=== PATIENT | female | born 1965 | race Caucasian/White ===

== ENCOUNTER 2024-11-17 08:38 | Day surgery (SDC) | payer MEDICAID ==
[~2024-11-17] VITALS: Ht 177.8 cm; Wt 77.2 kg
[~2024-11-17 08:38] MED LIST: ACET325T55 PO; CALC300T4 PO; DIPH25CA52 PO; DIPH28.34 TOP; DOCU283E RC; HYDR-3964 PO; IBUP-1985 PO; LEVO750T68 PO; METO5TAB85 PO; METR-159 PO; NYST30CR34 TOP; NYST50002 PO; PANT-47 PO; POLY17PO59 PO; PRAM113C TOP; TETR20SP MT; VANC1.257 IV
[2024-11-17 09:40] VITALS: BP 141/85; PULSE 100; RESP 21
[2024-11-17] MEDS ORDERED: fentaNYL/PF 50MCG/1 ML 2ML syringe ONE (10:06)
[2024-11-17] MEDS ORDERED: diphenhydrAMINE 50 mg/ml inj ONE (10:06)
[2024-11-17] MEDS ORDERED: MIDAZolam 1 MG/ML 5ML VIAL ONE (10:06)
[2024-11-17] MEDS ORDERED: LIDOcaine 2% Viscous 15ml cup ONE (10:07)
[2024-11-17 10:30] VITALS: BP 112/68; PULSE 85; RESP 13
[2024-11-17 10:40] VITALS: BP 138/80; PULSE 87; RESP 13
[2024-11-17 10:50] VITALS: BP 126/80; PULSE 96; RESP 14
[2024-11-17 11:00] VITALS: BP 123/81; PULSE 90; RESP 17
== END 2024-11-17 13:00 | disposition home or self-care (01) ==
LOC: GI LAB 08:38
PROVIDERS: ATTEND Internal Medicine Gastroenterology
DX: D50.0 Iron deficiency anemia secondary to blood loss (chronic) (principal); R13.10 Dysphagia, unspecified; B37.81 Candidal esophagitis; K31.89 Other diseases of stomach and duodenum
CPT/HCPCS: 43239; 99152; J2250; J3010; J7030; Z7512; A4620; J1200

== ENCOUNTER 2024-11-29 22:49 | Inpatient (IN) | payer MEDICAID ==
[~2024-11-29] VITALS: Ht 177.8 cm; Wt 72.7 kg
[2024-11-29 23:23] LABS: BASOPHILS % (AUTO) 0.2 % (0-1); EOSINOPHILS # (AUTO) 0.1 X10'3 (0-0.9); HEMOGLOBIN 7.9 g/dl (12.0-16.0); LYMPHOCYTES # (AUTO) 0.6 X10'3 (1.1-4.8); MONOCYTES # (AUTO) 0.8 X10'3 (0-0.9)
[2024-11-29 23:25] LABS: EOSINOPHILS % (AUTO) 0.9 % (0-6); HEMATOCRIT 24.4 % (35.0-45.0); LYMPHOCYTES % (AUTO) 7.6 % (21-51); MEAN CORPUSCULAR HEMOGLOBIN 23.4 PG (27.0-31.0); MEAN CORPUSCULAR HGB CONC 32.3 g/dL (33.0-36.5); MEAN CORPUSCULAR VOLUME 72.5 FL (78-98); MEAN PLATELET VOLUME 7.8 FL (7.4-10.4); MONOCYTES % (AUTO) 10.2 % (2-12); NEUTROPHILS # (AUTO) 6.5 X10'3 (1.8-7.7); NEUTROPHILS % (AUTO) 81.1 % (42-75); PLATELET COUNT 417 X10'3 (140-440); RED BLOOD COUNT 3.36 X10'6 (4.20-5.60); RED CELL DISTRIBUTION WIDTH 17.6 % (11.5-14.5)
[2024-11-29 23:40] LABS: ALANINE AMINOTRANSFERASE 30 U/L (12-78); ALBUMIN 3.2 G/DL (3.4-5.0); ALBUMIN/GLOBULIN RATIO 0.8 (1.1-1.5); ALKALINE PHOSPHATASE 100 IU/L (46-116); ANION GAP 10 (8-16); ASPARTATE AMINO TRANSFERASE 55 U/L (10-37); BILIRUBIN,TOTAL 0.3 MG/DL (0.1-1.0); BLOOD UREA NITROGEN 47 MG/DL (7-18); BUN/CREATININE RATIO 35.3 (10.0-20.0); CALCIUM 8.8 MG/DL (8.5-10.1); CHLORIDE 107 MMOL/L (99-107); CREATININE 1.33 MG/DL (0.40-0.90); GLUCOSE 102 MG/DL (70-104); POTASSIUM 4.3 MMOL/L (3.5-5.1); SODIUM 137 MMOL/L (135-145); TOTAL CARBON DIOXIDE 20.2 MMOL/L (24-32); eCRCL 48 ML/MIN; eGFR 41 ML/MIN
[2024-11-29 23:47] LABS: PRO BRAIN NATRIURETIC PEPTIDE 2692 PG/ML (0-125)
[2024-11-30] VITALS (9 sets, daily range): BP systolic 112–161; BP diastolic 66–86; PULSE 81–95; RESP 12–18; TEMP 97.3–98; O2SAT 99–100
[2024-11-30] MEDS: ketorolac trometh 15mg/ml vial 15 MG/ML ML IV ONE (03:09)
[2024-11-30] MEDS ORDERED: iohexol 300mg/ml 100ml inj. ONE (03:42)
[2024-11-30] MEDS: pantoprazole 40 MG vial IV ONE (04:43)
[2024-11-30 04:46] LABS: OCCULT BLOOD STOOL NEGATIVE (Neg)
[2024-11-30] MEDS: normal saline 1000ml 1,000 ML IV ONE (05:34)
[2024-11-30] MEDS ORDERED: acetaminophen 325mg tablet PO PRN (06:40)
[2024-11-30] MEDS ORDERED: ondansetron/PF 4mg/2ml inj IV PRN (06:40)
[2024-11-30] MEDS ORDERED: potassium Cl 20 mEq SR tablet PO PRN ×2 (06:40)
[2024-11-30] MEDS ORDERED: magnesium sulf-water 2g/50mL 50 ML IV PRN (06:40)
[2024-11-30] MEDS ORDERED: magnesium hydroxide 30ml (MOM) UD suspension PO PRN (06:40)
[2024-11-30] MEDS ORDERED: docusate sod 100mg capsule PO PRN (06:40)
[2024-11-30] MEDS ORDERED: potassium Cl 40MEQ/1/2NS 520ml 520 ML IV PRN (06:40)
[2024-11-30] MEDS: PERFLUTREN PROTEIN-A MICROSPHR (Optison) 0.22 MG/ML 3ML VIAL IV ONE (06:40)
[2024-11-30] MEDS ORDERED: magnesium sulf-water 4G/100mL 100 ML IV PRN (06:40)
[2024-11-30] MEDS ORDERED: magnesium Cl slow-release 64mg tablet PO PRN (06:40)
[2024-11-30] MEDS ORDERED: mag hydrox/Alum hydrox/simeth 30ml oral suspension PO PRN (06:40)
[2024-11-30] MEDS ORDERED: morphine 2 MG/ML inj. syringe IV PRN (06:40)
[2024-11-30] MEDS: normal saline 1000ml 1,000 ML IV SCH (07:15)
[2024-11-30 07:33] LABS: BILIRUBIN,URINE NEGATIVE (Neg); CLARITY,URINE CLEAR (Clear); COLOR,URINE YELLOW (Yellow); GLUCOSE, URINE NEGATIVE (Neg); KETONES,URINE NEGATIVE (Neg); LEUKOCYTE ESTERASE ,URINE NEGATIVE (Neg); NITRITES, URINE NEGATIVE (Neg); OCCULT BLOOD,URINE NEGATIVE (Neg); PROTEIN,URINE NEGATIVE (Neg); UROBILINOGEN,URINE 0.2 E.U/dL (0.2-1.0)
[2024-11-30] MEDS: K and/or MAG REPLACEMENT MC SCH (07:42)
[2024-11-30 07:45] LABS: APTT 24 SECONDS (22-32); INR 1.1 INR; PROTHROMBIN TIME 11.2 SECONDS (9.0-12.0)
[2024-11-30 07:48] LABS: BASOPHILS % (AUTO) 0.2 % (0-1); EOSINOPHILS # (AUTO) 0.1 X10'3 (0-0.9); EOSINOPHILS % (AUTO) 3.7 % (0-6); LYMPHOCYTES # (AUTO) 0.4 X10'3 (1.1-4.8); LYMPHOCYTES % (AUTO) 11.4 % (21-51); MEAN CORPUSCULAR HEMOGLOBIN 23.7 PG (27.0-31.0); MEAN CORPUSCULAR HGB CONC 32.6 g/dL (33.0-36.5); MEAN CORPUSCULAR VOLUME 72.5 FL (78-98); MEAN PLATELET VOLUME 7.4 FL (7.4-10.4); MONOCYTES # (AUTO) 0.5 X10'3 (0-0.9); MONOCYTES % (AUTO) 13.1 % (2-12); NEUTROPHILS # (AUTO) 2.8 X10'3 (1.8-7.7); NEUTROPHILS % (AUTO) 71.6 % (42-75); PLATELET COUNT 389 X10'3 (140-440); RED BLOOD COUNT 2.96 X10'6 (4.20-5.60); RED CELL DISTRIBUTION WIDTH 17.4 % (11.5-14.5); WHITE BLOOD COUNT 3.9 X10'3 (4.5-11.0)
[2024-11-30 07:49] LABS: CREATINE KINASE MB 4.1 ng/ml (0.3-3.6); MAGNESIUM 2.2 MG/DL (1.5-2.4); POTASSIUM 4.3 MMOL/L (3.5-5.1); THYROID STIMULATING HORMONE 1.24 ulU/ml (0.34-4.50)
[2024-11-30 07:58] LABS: HEMATOCRIT 21.4 % (35.0-45.0)
[2024-11-30] MEDS: heparin, porcine 5000 units/ml vial SQ SCH (08:04)
[2024-11-30] MEDS: CefTRIAXone/D5W-Rocephin 1gm 50 ML IV SCH (08:04)
[2024-11-30] MEDS: pantoprazole 40 MG vial IV SCH (08:05)
[2024-11-30] MEDS: levoFLOXACIN-Levaquin 750MG/D5 150 ML IV SCH (08:05)
[2024-11-30 08:06] LABS: URINE AMPHETAMINE SCREEN NEGATIVE (Neg); URINE BARBITUATE SCREEN NEGATIVE (Neg); URINE BENZODIAZEPINES SCREEN NEGATIVE (Neg); URINE CANNABINOID SCREEN NEGATIVE (Neg); URINE COCAINE SCREEN NEGATIVE (Neg); URINE METHADONE SCREEN NEGATIVE (Neg); URINE OPIATE SCREEN POSITIVE (Neg); URINE PHENCYCLIDINE SCREEN NEGATIVE (Neg)
[2024-11-30 08:09] LABS: UA COLLECTION TYPE CLN CATCH MIDSTREAM
[2024-11-30 08:31] LABS: HEMOGLOBIN A1C 5.9 % (4.5-6.2)
[2024-11-30] MEDS ORDERED: FERR324T PO (14:30)
[2024-11-30] MEDS: pantoprazole 40MG/NS 100ML BAG 100 ML IV SCH (17:42)
[2024-11-30 19:37] LABS: BASOPHILS % (AUTO) 0 % (0-1); EOSINOPHILS # (AUTO) 0.2 X10'3 (0-0.9); EOSINOPHILS % (AUTO) 3.6 % (0-6); HEMATOCRIT 28.6 % (35.0-45.0); HEMOGLOBIN 8.9 g/dl (12.0-16.0); LYMPHOCYTES # (AUTO) 0.5 X10'3 (1.1-4.8); LYMPHOCYTES % (AUTO) 8.6 % (21-51); MEAN CORPUSCULAR HEMOGLOBIN 24.6 PG (27.0-31.0); MEAN CORPUSCULAR VOLUME 79.2 FL (78-98); MEAN PLATELET VOLUME 7.2 FL (7.4-10.4); MONOCYTES # (AUTO) 0.6 X10'3 (0-0.9); MONOCYTES % (AUTO) 10.9 % (2-12); NEUTROPHILS # (AUTO) 4.3 X10'3 (1.8-7.7); NEUTROPHILS % (AUTO) 76.9 % (42-75); PLATELET COUNT 325 X10'3 (140-440); RED BLOOD COUNT 3.61 X10'6 (4.20-5.60); RED CELL DISTRIBUTION WIDTH 19.1 % (11.5-14.5); WHITE BLOOD COUNT 5.6 X10'3 (4.5-11.0)
[2024-11-30] MEDS: amLODIPine 5mg tablet PO SCH (21:29)
[2024-11-30] MEDS: lactobacillus rhamnosus 10,000 MMU CELLS/CAPSULE PO SCH (21:30)
[2024-11-30] MEDS: loratadine 10mg tablet PO SCH (23:26)
[2024-11-30] MEDS: morphine 2 MG/ML inj. syringe IV PRN (23:26)
[2024-11-30] MEDS: NYSTATIN CREAM - 30GM TUBE TP SCH (23:27)
[2024-12-01 06:00] VITALS: BP 136/72; PULSE 100; RESP 16; TEMP 99.5; O2SAT 98
[2024-12-01 06:05] LABS: BASOPHILS % (AUTO) 0.1 % (0-1); EOSINOPHILS # (AUTO) 0.2 X10'3 (0-0.9); EOSINOPHILS % (AUTO) 2.5 % (0-6); HEMATOCRIT 26.4 % (35.0-45.0); HEMOGLOBIN 8.7 g/dl (12.0-16.0); LYMPHOCYTES # (AUTO) 0.4 X10'3 (1.1-4.8); LYMPHOCYTES % (AUTO) 4.8 % (21-51); MEAN CORPUSCULAR HEMOGLOBIN 24.3 PG (27.0-31.0); MEAN CORPUSCULAR HGB CONC 32.9 g/dL (33.0-36.5); MEAN CORPUSCULAR VOLUME 73.9 FL (78-98); MEAN PLATELET VOLUME 7.4 FL (7.4-10.4); MONOCYTES # (AUTO) 0.7 X10'3 (0-0.9); MONOCYTES % (AUTO) 8.5 % (2-12); NEUTROPHILS % (AUTO) 84.1 % (42-75); PLATELET COUNT 336 X10'3 (140-440); RED BLOOD COUNT 3.58 X10'6 (4.20-5.60); RED CELL DISTRIBUTION WIDTH 18.5 % (11.5-14.5); WHITE BLOOD COUNT 8.4 X10'3 (4.5-11.0)
[2024-12-01 06:28] LABS: % IRON SATURATION 7 % (11-46); IRON 16 UG/DL (49-151); TOTAL IRON BINDING CAPACITY 239 UG/DL (259-388)
[2024-12-01 06:29] LABS: ALANINE AMINOTRANSFERASE 33 U/L (12-78); ALBUMIN 2.6 G/DL (3.4-5.0); ALBUMIN/GLOBULIN RATIO 0.7 (1.1-1.5); ALKALINE PHOSPHATASE 95 IU/L (46-116); ANION GAP 10 (8-16); ASPARTATE AMINO TRANSFERASE 46 U/L (10-37); BILIRUBIN,TOTAL 0.3 MG/DL (0.1-1.0); BLOOD UREA NITROGEN 25 MG/DL (7-18); BUN/CREATININE RATIO 21.7 (10.0-20.0); CALCIUM 8.1 MG/DL (8.5-10.1); CHLORIDE 106 MMOL/L (99-107); CHOL/HDL RATIO 2.4 (0.00-4.99); CHOLESTEROL 115 MG/DL (0-200); CREATININE 1.15 MG/DL (0.40-0.90); GLUCOSE 101 MG/DL (70-104); HDL CHOLESTEROL 47 MG/DL (35-60); POTASSIUM 4.6 MMOL/L (3.5-5.1); SODIUM 135 MMOL/L (135-145); TOTAL CARBON DIOXIDE 19.5 MMOL/L (24-32); TOTAL PROTEIN 6.3 G/DL (6.4-8.2); TRIGLYCERIDES 96 MG/DL (20-135); eCRCL 56 ML/MIN; eGFR 48 ML/MIN
[2024-12-01 07:13] LABS: LDL CHOLESTEROL 53 MG/DL (50-100)
[2024-12-01 08:30] VITALS: RESP 20; O2SAT 96
[2024-12-01 10:00] VITALS: BP 140/61; PULSE 98; RESP 18; TEMP 97.6; O2SAT 100
[2024-12-01] MEDS: HYDROcodone/acetaminophen 5mg/325mg tablet PO PRN (11:45)
[2024-12-01] MEDS: LORazepam 2 mg/ml vial IV PRN (11:45)
[2024-12-01 18:00] VITALS: BP 127/69; PULSE 97; RESP 16; TEMP 98.7; O2SAT 100
[2024-12-01] MEDS: pantoprazole 40 MG vial IV SCH (19:43)
[2024-12-01 20:00] VITALS: RESP 16; O2SAT 100
[2024-12-01 22:00] VITALS: BP 108/60; PULSE 101; RESP 18; TEMP 99.8; O2SAT 96
[2024-12-02 06:10] LABS: BASOPHILS % (AUTO) 0.1 % (0-1); EOSINOPHILS # (AUTO) 0.3 X10'3 (0-0.9); EOSINOPHILS % (AUTO) 3.9 % (0-6); HEMATOCRIT 26.4 % (35.0-45.0); HEMOGLOBIN 8.7 g/dl (12.0-16.0); LYMPHOCYTES # (AUTO) 0.4 X10'3 (1.1-4.8); LYMPHOCYTES % (AUTO) 5.9 % (21-51); MEAN CORPUSCULAR HEMOGLOBIN 24.3 PG (27.0-31.0); MEAN CORPUSCULAR VOLUME 73.7 FL (78-98); MEAN PLATELET VOLUME 7.1 FL (7.4-10.4); MONOCYTES # (AUTO) 0.6 X10'3 (0-0.9); MONOCYTES % (AUTO) 9.4 % (2-12); NEUTROPHILS # (AUTO) 5.5 X10'3 (1.8-7.7); NEUTROPHILS % (AUTO) 80.7 % (42-75); PLATELET COUNT 318 X10'3 (140-440); RED BLOOD COUNT 3.58 X10'6 (4.20-5.60); RED CELL DISTRIBUTION WIDTH 18.9 % (11.5-14.5); WHITE BLOOD COUNT 6.8 X10'3 (4.5-11.0)
[2024-12-02 06:32] LABS: ALANINE AMINOTRANSFERASE 32 U/L (12-78); ALBUMIN 2.5 G/DL (3.4-5.0); ALBUMIN/GLOBULIN RATIO 0.7 (1.1-1.5); ALKALINE PHOSPHATASE 77 IU/L (46-116); ANION GAP 7 (8-16); ASPARTATE AMINO TRANSFERASE 28 U/L (10-37); BILIRUBIN,TOTAL 0.3 MG/DL (0.1-1.0); BLOOD UREA NITROGEN 23 MG/DL (7-18); BUN/CREATININE RATIO 23.2 (10.0-20.0); CALCIUM 8.5 MG/DL (8.5-10.1); CHLORIDE 104 MMOL/L (99-107); CREATININE 0.99 MG/DL (0.40-0.90); GLUCOSE 98 MG/DL (70-104); POTASSIUM 4.8 MMOL/L (3.5-5.1); SODIUM 134 MMOL/L (135-145); TOTAL PROTEIN 6.2 G/DL (6.4-8.2); eCRCL 65 ML/MIN; eGFR 57 ML/MIN
[2024-12-02 07:12] VITALS: BP 103/57; PULSE 101; RESP 18; TEMP 98; O2SAT 97
[2024-12-02 07:33] VITALS: RESP 16
[2024-12-02 10:00] VITALS: BP 106/54; PULSE 95; RESP 20; TEMP 97.8; O2SAT 97
[2024-12-02] MEDS ORDERED: LEVO750T68 PO (11:46)
[2024-12-02] MEDS ORDERED: NOR5T PO (11:46)
[2024-12-02] MEDS ORDERED: NYST15CR36 TP (11:46)
[2024-12-02] MEDS ORDERED: PANT40TA54 PO (11:46)
[2024-12-02] MEDS ORDERED: LORA10TA7 PO (11:46)
[2024-12-02] MEDS ORDERED: CEFD300C3 PO (11:46)
[2024-12-02] MEDS ORDERED: LACT1CAP26 PO (11:46)
[2024-12-02] MEDS ORDERED: ALBU8HFA PO (14:10)
== END 2024-12-02 14:50 | disposition home or self-care (01) | DRG 383 ==
LOC: ER 22:49 → ED HOLD 11-30 05:08 → SUR 3N 11-30 14:41
PROVIDERS: ADMIT Internal Medicine Pulmonary Disease; ATTEND Family Medicine
PROC: BW251ZZ Computerized Tomography (CT Scan) of Chest, Abdomen and Pelvis using Low Osmolar Contrast (ICD-10-PCS; principal; 2024-11-30)
PROC: 30233N1 Transfusion of Nonautologous Red Blood Cells into Peripheral Vein, Percutaneous Approach (ICD-10-PCS; 2024-11-30)
DX: L03.011 Cellulitis of right finger (principal); G93.41 Metabolic encephalopathy; J85.1 Abscess of lung with pneumonia; J15.69 Pneumonia due to other Gram-negative bacteria; N17.9 Acute kidney failure, unspecified; J15.9 Unspecified bacterial pneumonia; K92.2 Gastrointestinal hemorrhage, unspecified; C34.31 Malignant neoplasm of lower lobe, right bronchus or lung; D50.9 Iron deficiency anemia, unspecified; L03.115 Cellulitis of right lower limb; I95.9 Hypotension, unspecified; F11.90 Opioid use, unspecified, uncomplicated; F15.90 Other stimulant use, unspecified, uncomplicated; F12.90 Cannabis use, unspecified, uncomplicated; B37.2 Candidiasis of skin and nail; I12.9 Hypertensive chronic kidney disease with stage 1 through stage 4 chronic kidney disease, or unspecified chronic kidney disease; J98.4 Other disorders of lung; N18.30 Chronic kidney disease, stage 3 unspecified; D63.1 Anemia in chronic kidney disease; E11.22 Type 2 diabetes mellitus with diabetic chronic kidney disease; R16.2 Hepatomegaly with splenomegaly, not elsewhere classified; Z85.038 Personal history of other malignant neoplasm of large intestine; Z85.41 Personal history of malignant neoplasm of cervix uteri; Z79.899 Other long term (current) drug therapy; Z87.891 Personal history of nicotine dependence; Z90.49 Acquired absence of other specified parts of digestive tract
CPT/HCPCS: 36415; 36430; 70450; 71045; 71260; 73120; 74177; 80053; 80061; 80305; 81003; 82272; 82553; 82728; 83036; 83540; 83550; 83605; 83735; 83880; 83930; 84132; 84145; 84443; 84484; 85025; 85610; 85651; 85730; 86885; 86900; 86901; 86920; 87040; 87081; 92508; 92616; 93005; 93306; 97116; 97161; 97530; G0378; J0696; J1644; J1885; J1956; J2060; J2270; J2470; J7030; J7050; P9016; Q9967